=== PATIENT | female | born 1970 | race Caucasian/White ===

== ENCOUNTER 2022-01-15 13:55 | Emergency (ER) | payer OTHER ==
[2022-01-15] MEDS ORDERED: methylPREDNISolone NA SUCC 125 MG/2 ML VIAL IVPB ONE (14:30)
[2022-01-15 14:33] VITALS: BMI 19.3
[2022-01-15 15:14] LABS: BASO % 0.9 % (0-2.0); EOS % 12.5 % (0-4.5); HEMATOCRIT 40.2 % (32.4-45.2); HEMOGLOBIN 13.4 GM/dL (10.7-15.3); LYMPH % 29.8 % (8-40); MCHC 33.3 g/dl (32.0-36.0); MEAN PLT VOLUME 6.9 fl (7.5-11.1); MONO % 8.7 % (3.8-10.2); NEUT % 48.1 % (42.8-82.8); PLATELET COUNT 294 10^3/uL (134-434); RBC 4.18 M/mm3 (3.60-5.2); RDW 13.7 % (11.6-15.6); WHITE BLOOD COUNT 6.3 K/mm3 (4.0-10.0)
[2022-01-15 15:16] LABS: INR 0.89 (0.83-1.09); PROTHROMBIN TIME (PATIENT) 10.2 SEC (9.7-13.0)
[2022-01-15 15:18] LABS: ACTIVATED PTT 31.3 SECONDS (25.2-36.5)
[2022-01-15] MEDS: ALBUTEROL SO4 2.5/IPRATROPIUM 0.5 INH SOL 3 ML VIAL.NEB. NEB SCH (15:19)
[2022-01-15 15:28] LABS: ALBUMIN 3.9 g/dl (3.4-5.0)
[2022-01-15 15:31] LABS: CREATININE 0.7 mg/dL (0.55-1.3)
[2022-01-15 15:33] LABS: BILIRUBIN,TOTAL 0.2 mg/dL (0.2-1); TOT PROT 7.1 g/dl (6.4-8.2)
[2022-01-15 15:37] LABS: BLOOD UREA NITROGEN 19.4 mg/dL (7-18)
[2022-01-15] MEDS ORDERED: AZITHROMYCIN 250 MG TABLET PO ONE (16:17)
[2022-01-15] MEDS ORDERED: AZITHROMYCIN 500 MG TABLET ONE (16:30)
[2022-01-15 17:20] VITALS: BP 120/84; PULSE 104; RESP 18; TEMP 98.7
== END 2022-01-15 17:20 | disposition home or self-care (01) ==
LOC: JER 13:55
PROC: 3E033GC Introduction of Other Therapeutic Substance into Peripheral Vein, Percutaneous Approach (ICD-10-PCS; principal; 2022-01-15)
PROC: 3E0F7GC Introduction of Other Therapeutic Substance into Respiratory Tract, Via Natural or Artificial Opening (ICD-10-PCS; 2022-01-15)
DX: U07.1 COVID-19 (principal)
CPT/HCPCS: 0241U-QW; 36415; 71046-TC-FY; 80053; 84484; 85025; 85379; 85610; 85730; 93005; 93010; 99285-25

== ENCOUNTER 2022-08-03 09:08 | Emergency (ER) | payer OTHER ==
[2022-08-03 09:21] VITALS: BP 117/86; PULSE 90; RESP 18; TEMP 98.1; BMI 19.5
== END 2022-08-03 10:10 | disposition home or self-care (01) ==
LOC: FER 09:08
DX: K59.00 Constipation, unspecified (principal)
CPT/HCPCS: 74019-TC-FY; 99283-25

== ENCOUNTER 2023-02-28 11:24 | Inpatient (IN) | payer OTHER ==
[2023-02-28] MEDS ORDERED: DICYCLOMINE HCL 10 MG CAPSULE PO PRN (12:14)
[2023-02-28] MEDS ORDERED: IBUPROFEN 600 MG TABLET (FP) PO PRN (12:14)
[2023-02-28] MEDS ORDERED: hydrOXYzine PAMOATE 25 MG CAPSULE (FP) PO PRN (12:14)
[2023-02-28] MEDS ORDERED: ONDANSETRON *ODT* 4 MG TABLET SL PRN (12:14)
[2023-02-28] MEDS ORDERED: ACETAMINOPHEN 325 MG TABLET (FP) PO PRN (12:14)
[2023-02-28] MEDS ORDERED: MAGNESIUM HYDROX 2400MG/30ML ORAL SUSPENSION 30 ML CUP PO PRN (12:14)
[2023-02-28] MEDS ORDERED: NALOXONE HCL 0.4 MG/ML VIAL IM PRN (12:14)
[2023-02-28] MEDS ORDERED: MAG HYDROX/AL HYDROX/SIMETH 30 ML UNIT-DOSE CUP PO PRN (12:14)
[2023-02-28] MEDS ORDERED: chlordiazePOXIDE HCL 25 MG CAPSULE PO PRN (12:14)
[2023-02-28] MEDS ORDERED: guaiFENesin 600 MG TABLET.ER (FP) PO PRN (12:14)
[2023-02-28] MEDS ORDERED: LOPERAMIDE HCL 2 MG CAPSULE PO PRN (12:14)
[2023-02-28] MEDS ORDERED: BISMUTH SUBSALICYLATE 524 MG/30 ML PO PRN (12:14)
[2023-02-28] MEDS ORDERED: POLYETHYLENE GLYCOL (HEALTHYLAX) 3350 17 GM PACKET PO PRN (12:14)
[2023-02-28] MEDS ORDERED: NALOXONE HCL (KLOXXADO) 8 MG SPRAY NS PRN (12:14)
[2023-02-28] MEDS ORDERED: BENZONATATE 200 MG CAPSULE PO PRN (12:14)
[2023-02-28] MEDS ORDERED: METHOCARBAMOL 500 MG TABLET PO PRN (12:14)
[2023-02-28] MEDS ORDERED: BENZOCAINE/MENTHOL (CHLORASEPTIC ) LOZENGE MM PRN (12:14)
[2023-02-28] MEDS ORDERED: IBUPROFEN 400 MG TABLET (FP) PO PRN (12:14)
[2023-02-28] MEDS: chlordiazePOXIDE HCL 25 MG CAPSULE PO SCH ×2 (17:33→22:17)
[2023-02-28] MEDS ORDERED: THIAMINE HCL 100 MG TABLET (FP) PO SCH (22:00)
[2023-02-28] MEDS ORDERED: MELATONIN 5 MG TABLETS PO SCH (22:00)
[2023-03-01] MEDS ORDERED: MONTELUKAST NA 10 MG TABLET PO ONE (00:19)
[2023-03-01] MEDS ORDERED: ALBUTEROL SO4 HFA INHALER IH PRN (00:20)
[2023-03-01] MEDS: chlordiazePOXIDE HCL 25 MG CAPSULE PO SCH ×2 (05:48→10:18)
[2023-03-01 09:53] VITALS: RESP 16
[2023-03-01] MEDS ORDERED: VENLAFAXINE HCL 150 MG E.R. CAPSULE PO SCH (10:00)
[2023-03-01] MEDS ORDERED: VENLAFAXINE HCL 75 MG E.R. CAPSULES PO SCH (10:00)
[2023-03-01] MEDS ORDERED: PRENATAL VITAMINS W/ FOLIC ACID TABLET (FP) PO SCH (10:00)
[2023-03-01 10:18] LABS: CHLORIDE 99 mmol/L (98-107); POTASSIUM 4.2 mmol/L (3.5-5.1); SODIUM 136 mmol/L (136-145)
[2023-03-01 10:25] LABS: ALBUMIN 3.7 g/dl (3.4-5.0); BLOOD UREA NITROGEN 11.8 mg/dL (7-18); CALCIUM 9.5 mg/dL (8.5-10.1)
[2023-03-01 10:26] LABS: ANION GAP 6 mmol/L (4-13); CO2 31 mmol/L (21-32); GLUCOSE,RANDOM 81 mg/dL (74-106)
[2023-03-01 10:29] LABS: CREATININE 0.7 mg/dL (0.55-1.3); SGOT/AST 51 U/L (15-37); SGPT/ALT 41 U/L (13-61)
[2023-03-01 10:30] LABS: BILIRUBIN,TOTAL 0.5 mg/dL (0.2-1); TOT PROT 6.8 g/dl (6.4-8.2)
[2023-03-01 10:31] LABS: ALK PHOS 45 U/L (45-117)
[2023-03-01 10:32] LABS: HEMATOCRIT 39.7 % (32.4-45.2); HEMOGLOBIN 13.3 GM/dL (10.7-15.3); MCH 32.2 pg (25.7-33.7); MCHC 33.4 g/dl (32.0-36.0); MEAN CELL VOLUME 96.3 fl (80-96); MEAN PLT VOLUME 6.8 fl (7.5-11.1); PLATELET COUNT 233 10^3/uL (134-434); RBC 4.12 M/mm3 (3.60-5.2); WHITE BLOOD COUNT 3.3 K/mm3 (4.0-10.0)
[2023-03-01 13:27] VITALS: BP 149/97; PULSE 74; TEMP 98.2
[2023-03-01] MEDS ORDERED: traZODone HCL 100 MG TABLET (FP) PO SCH (22:00)
[2023-03-01] MEDS ORDERED: MONTELUKAST NA 10 MG TABLET PO SCH (22:00)
[2023-03-02] MEDS ORDERED: chlordiazePOXIDE HCL 25 MG CAPSULE PO SCH (05:00)
[2023-03-03] MEDS ORDERED: chlordiazePOXIDE HCL 10 MG CAPSULE PO PRN
[2023-03-03] MEDS ORDERED: chlordiazePOXIDE HCL 10 MG CAPSULE PO SCH (05:00)
[2023-03-04] MEDS ORDERED: chlordiazePOXIDE HCL 10 MG CAPSULE PO SCH (05:00)
[2023-03-05] MEDS ORDERED: chlordiazePOXIDE HCL 10 MG CAPSULE PO ONE (05:00)
== END 2023-03-01 15:55 | disposition left against medical advice (07) | DRG 770 ==
LOC: YASAS 11:24 → Y3N 12:49
PROVIDERS: ADMIT Allergy & Immunology; ATTEND Allergy & Immunology
PROC: HZ2ZZZZ Detoxification Services for Substance Abuse Treatment (ICD-10-PCS; principal; 2023-02-28)
DX: F10.230 Alcohol dependence with withdrawal, uncomplicated (principal); F17.210 Nicotine dependence, cigarettes, uncomplicated; F10.282 Alcohol dependence with alcohol-induced sleep disorder; F10.24 Alcohol dependence with alcohol-induced mood disorder; F33.1 Major depressive disorder, recurrent, moderate; J45.20 Mild intermittent asthma, uncomplicated
CPT/HCPCS: 36415; 80053; 80307; 81025; 85027; 86780; 87635; 87811